=== PATIENT | male | born 1975 | race Caucasian/White ===

== ENCOUNTER → 2018-11-29 12:33 | Outpatient (CLI) | payer OTHER, MEDICAID, SELFPAY ==
--- NOTE | 2018-11-29 12:35 | DI.RAD.S_ITS ---
PROCEDURE: XR KNEE RT 3V INDICATIONS: r knee pain TECHNIQUE: 3 views of the knee were acquired. COMPARISON: None. FINDINGS: Bones: There is prominent lateral compartment narrowing with superimposed degenerative changes. There is ill-defined lucency noted along the distal femoral articular surface of the lateral compartment. Periarticular osteophytes are present. Soft tissues: Moderate joint effusion. No suspicious soft tissue calcifications. IMPRESSION: Prominent lateral compartment narrowing with ill-defined lucency along the distal femur. Recommend correlation to recent trauma as underlying fracture cannot be excluded. If this is of concern, short interval imaging followup or CT is recommended for further evaluation. Overall appearance of degenerative changes are greater than expected for patient's stated age. Dictated by: Silvia Osborn M.D. on 11/29/2018 at 16:02 Approved by: Silvia Osborn M.D. on 11/29/2018 at 16:04
== END ==
PROVIDERS: Visit Provider Physician Assistant
DX: M25.561 Pain in right knee (principal); M17.11 Unilateral primary osteoarthritis, right knee; M25.461 Effusion, right knee
CPT/HCPCS: 73562